=== PATIENT | female | born 1965 | race Caucasian/White ===

== ENCOUNTER → 2019-12-12 | Outpatient (CLI) | payer OTHER | LOC: LAB 08:53 | DX: J02.9 Acute pharyngitis, unspecified (principal); M79.10 Myalgia, unspecified site; J34.89 Other specified disorders of nose and nasal sinuses; R53.83 Other fatigue; Z20.828 Contact with and (suspected) exposure to other viral communicable diseases ==

== ENCOUNTER 2019-12-29 16:15 | Emergency (ER) | payer OTHER | END 2019-12-29 16:16 | disposition home or self-care (01) | LOC: ED 16:15 | DX: Z72.89 Other problems related to lifestyle (principal) ==

== ENCOUNTER → 2019-12-29 | Outpatient (CLI) | payer OTHER | LOC: LAB 16:22 | DX: U07.1 COVID-19 (principal) ==

== ENCOUNTER → 2020-03-13 | Outpatient (CLI) | payer OTHER | LOC: MAMMO 14:07 | DX: Z12.31 Encounter for screening mammogram for malignant neoplasm of breast (principal); Z80.3 Family history of malignant neoplasm of breast; Z98.890 Other specified postprocedural states; Z92.3 Personal history of irradiation; Z98.82 Breast implant status ==

== ENCOUNTER → 2020-05-15 | Outpatient (CLI) | payer OTHER | LOC: RAD 08:24 | DX: Z13.820 Encounter for screening for osteoporosis (principal); M81.0 Age-related osteoporosis without current pathological fracture; M85.88 Other specified disorders of bone density and structure, other site; Z78.0 Asymptomatic menopausal state ==

== ENCOUNTER → 2020-07-20 | Outpatient (CLI) | payer OTHER | LOC: RAD 08:13 | DX: K76.0 Fatty (change of) liver, not elsewhere classified (principal) ==

== ENCOUNTER → 2020-08-22 | Outpatient (CLI) | payer OTHER | LOC: RAD 15:42 | DX: S22.41XA Multiple fractures of ribs, right side, initial encounter for closed fracture (principal) ==

== ENCOUNTER → 2020-09-06 | Outpatient (REF) | LOC: LAB 11:41 | DX: Z20.822 Contact with and (suspected) exposure to COVID-19 (principal) ==

== ENCOUNTER → 2020-12-05 | Outpatient (CLI) | payer OTHER | LOC: LAB 12:13 | DX: E53.9 Vitamin B deficiency, unspecified (principal); E55.9 Vitamin D deficiency, unspecified ==

== ENCOUNTER → 2021-03-21 | Outpatient (CLI) | payer OTHER | LOC: MAMMO 13:47 | DX: Z12.31 Encounter for screening mammogram for malignant neoplasm of breast (principal) ==

== ENCOUNTER → 2021-04-10 | Outpatient (CLI) | payer OTHER ==
[~2021-04-10] VITALS: Ht 170.2 cm; Wt 68.2 kg
[2021-04-10 15:12] VITALS: BP 111/79
== END ==
LOC: AMSURD 13:04
DX: M06.9 Rheumatoid arthritis, unspecified (principal)
CPT/HCPCS: J3301

== ENCOUNTER → 2021-04-16 | Outpatient (CLI) | payer OTHER | LOC: LAB 14:57 | DX: E53.9 Vitamin B deficiency, unspecified (principal); F51.04 Psychophysiologic insomnia; M19.90 Unspecified osteoarthritis, unspecified site; M06.9 Rheumatoid arthritis, unspecified; E66.3 Overweight ==

== ENCOUNTER → 2021-08-16 | Outpatient (CLI) | payer OTHER ==
[~2021-08-16] VITALS: Ht 170.2 cm; Wt 68.2 kg
[~2021-08-16] MED LIST: ATORVASTATIN CA10 MG PO; BELSOMRA10 MG PO; CALCIUM 500 + D1 TA2 PO; DULOXETINE30 MG PO; MELOXICAM15 MG PO; OMEPRAZOLE40 MG PO; SALAGEN 5MG TAB5 MG PO; SULFAZINE500 M1 PO; VITAMIN B COMPL1 SGL PO; XELJANZ5 MG PO; ZANAFLEX4 M1 PO
[2021-08-16 09:14] VITALS: BP 131/84
== END ==
LOC: AMSURD 08:45
DX: Z51.81 Encounter for therapeutic drug level monitoring (principal)
CPT/HCPCS: J3489

== ENCOUNTER → 2021-09-11 | Outpatient (CLI) | payer OTHER | LOC: RAD 15:50 | DX: S42.402A Unspecified fracture of lower end of left humerus, initial encounter for closed fracture (principal); S53.105A Unspecified dislocation of left ulnohumeral joint, initial encounter ==

== ENCOUNTER → 2023-04-20 | Outpatient (CLI) | payer OTHER | LOC: MAMMO 07:03 | DX: N63.11 Unspecified lump in the right breast, upper outer quadrant (principal); Z98.890 Other specified postprocedural states ==

== ENCOUNTER → 2023-12-25 | Outpatient (CLI) | payer OTHER ==
[~2023-12-25] VITALS: Ht 165.1 cm; Wt 86.8 kg
[~2023-12-25] MED LIST changes: +Zoledronic Acid 100 ML IV ONE
[2023-12-25 15:22] VITALS: BP 140/65
[2023-12-25 16:17] VITALS: BP 136/75
== END ==
LOC: AMSURD 12-17 00:32
DX: M81.0 Age-related osteoporosis without current pathological fracture (principal)
CPT/HCPCS: J3489